=== PATIENT | male | born 1990 | race Caucasian/White ===

== ENCOUNTER → 2019-07-03 09:18 | Outpatient (BNVA) | payer OTHER, SELFPAY | PROVIDERS: Visit Provider Registered Nurse | DX: I10 Essential (primary) hypertension (principal); G47.00 Insomnia, unspecified; F51.01 Primary insomnia; E66.09 Other obesity due to excess calories; Z68.34 Body mass index [BMI] 34.0-34.9, adult | CPT/HCPCS: 80053; 80061; 83721; 85025 ==

== ENCOUNTER → 2021-01-29 15:55 | Outpatient (BNVA) | payer OTHER, SELFPAY | PROVIDERS: Visit Provider Specialist | DX: S99.912A Unspecified injury of left ankle, initial encounter (principal); X58.XXXA Exposure to other specified factors, initial encounter | CPT/HCPCS: 73610 ==

== ENCOUNTER 2021-01-29 16:36 | Outpatient (CLI) | payer OTHER, SELFPAY | END 2021-01-29 16:37 | disposition home or self-care (01) | LOC: SPT 01-30 09:37 | PROVIDERS: Visit Provider Specialist | DX: Z46.89 Encounter for fitting and adjustment of other specified devices (principal); S86.112D Strain of other muscle(s) and tendon(s) of posterior muscle group at lower leg level, left leg, subsequent encounter; X58.XXXD Exposure to other specified factors, subsequent encounter | CPT/HCPCS: 97760; L4361 ==